=== PATIENT | female | born 1960 | race Hispanic/Latino ===

== ENCOUNTER → 2019-06-22 | Outpatient (CLI) | payer MEDICARE, OTHER ==
[~2019-06-22] MED LIST: IOPAMIDOL 370 MG/ML 200 ML INFUS..BTL INJ ONE; SODIUM CHLORIDE 0.9% 50ML 50 ML ONE
[2019-06-22 12:08] LABS: BLOOD UREA NITROGEN 12 mg/dL (7-26); BUN/CREATININE RATIO 14 (6-25); CREATININE, SERUM 0.85 mg/dL (0.57-1.11); EST GLOMERULAR FILTRATION RATE > 60 ML/MIN (60-)
--- NOTE | 2019-06-22 13:37 | Diagnostic Imaging Report ---
INDICATION: Right upper quadrant abdominal pain. COMPARISON: None. TECHNIQUE: CT of the Abdomen and Pelvis WITH intravenous contrast. Enteric contrast was not used. The exam was performed according to our department dose-optimization protocol, which includes automated exposure control, adjustments of mA and kV according to patient size. Iterative reconstructions are also sometimes employed. FINDINGS: There is suggestion of a few small stones in the gallbladder. The gallbladder is not distended and there is no inflammatory change around the gallbladder. No biliary ductal dilation. Diffuse fatty infiltration of the pancreas is noted without peripancreatic stranding or ductal dilation. Liver and spleen are unremarkable. There is nonnodular thickening of the adrenal glands. No renal mass or hydronephrosis is demonstrated. In the uterus there is a 8 mm enhancing area, probably a small polyp or submucosal fibroid. No adnexal mass is demonstrated. No bowel obstruction or infection is demonstrated. No peritoneal free fluid or free air. Lower thorax is unremarkable. There is multilevel thoracolumbar vertebral degenerative change. No suspicious osseous lesion or compression fracture is demonstrated. IMPRESSION: Suggestion of gallbladder stones. Right upper quadrant ultrasound exam is recommended. No CT evidence of cholecystitis. Small enhancing area in the uterus, suspect small polyp or submucosal fibroid. Pelvic ultrasound exam is recommended. This would best be performed on a routine outpatient basis. Signed by: Chaka Mcdowell MD on 06/22/2019 1:35 PM
== END ==
LOC: CT 10:54
PROVIDERS: ATTEND Internal Medicine Gastroenterology
DX: R10.11 Right upper quadrant pain (principal)
CPT/HCPCS: 36415; 74177; 82565; 84520; Q9967

== ENCOUNTER → 2019-11-09 | Day surgery (SDC) | payer OTHER ==
[2019-11-04 11:47] LABS: BASOPHILS % 0.4 % (0.0-1.0); EOSINOPHILS # (AUTO) 0.2 (0.0-0.4); EOSINOPHILS % 2.1 % (0.0-6.0); HEMATOCRIT 32.9 % (34.2-44.1); LYMPHOCYTES # (AUTO) 1.6 (1.0-3.2); LYMPHOCYTES % 17.6 % (18.0-39.1); MEAN CORPUSCULAR HEMOGLOBIN 27.9 pg (28-32); MEAN CORPUSCULAR HGB CONC 30.4 g/dL (31-35); MEAN CORPUSCULAR VOLUME 91.6 fL (81-99); MONOCYTES # (AUTO) 0.6 (0.2-0.8); MONOCYTES % 6.9 % (4.4-11.3); NEUTROPHILS # (AUTO) 6.6 (2.1-6.9); NEUTROPHILS % 72.7 % (38.7-80.0); PLATELET COUNT 222 x10e3/uL (140-360); RED BLOOD COUNT 3.59 x10e6/uL (3.6-5.1); RED CELL DISTRIBUTION WIDTH 14.2 % (11.7-14.4)
[~2019-11-09] MED LIST changes: +AMLODIPINE BESY10 MG PO; +ATORVASTATIN CA40 MG PO; +GABAPENTIN400 MG PO; +HYDRALAZINE HCL25 MG PO; +HYOSCYAMINE 0.125 MG TAB ONE; -IOPAMIDOL 370 MG/ML 200 ML INFUS..BTL INJ ONE; +LOSARTAN POTAS100 MG PO; +NOVOLIN N100 UNIT/1 SC; -SODIUM CHLORIDE 0.9% 50ML 50 ML ONE
[2019-11-09 14:00] VITALS: BP 130/80
--- NOTE | 2019-11-09 14:21 | Operative Report ---
DATE OF PROCEDURE: 11/09/2019 SURGEON: Vasyl Zamora MD PROCEDURES: EGD with biopsies and colonoscopy with polypectomy. INDICATION FOR EGD: Dyspepsia. INDICATIONS FOR COLONOSCOPY: Colorectal cancer screening. MEDICATIONS: The patient was done under MAC, please see anesthesiologist's note. PROCEDURE IN DETAIL: With the patient in left lateral decubitus position, a flexible fiberoptic Olympus gastroscope was introduced into the esophagus under direct visualization without any difficulty. There was some patchy erythema noted in distal esophagus. The scope was then advanced with ease into the stomach. Mucosa overlying the antrum and the body revealed some patchy erythema and [id number] edema, and biopsies were obtained, sent to stain for H. pylori. Pylorus was of normal contour and shape, it was intubated with ease and the scope was advanced all the way to the second portion of the duodenum. Biopsies were obtained from the proximal second portion and duodenal bulb to rule out sprue. The scope was then withdrawn back into the stomach and retroflexed, mucosa overlying the fundus and cardia appeared to be within normal limits. The scope was then straightened out, it was subsequently withdrawn. The patient tolerated the procedure well. IMPRESSION: 1. Distal esophagitis, mild. 2. Gastritis, biopsied, biopsies sent to stain for H. pylori. 3. Rule out sprue. PLAN: 1. Follow up histology. 2. Initiate Protonix 40 mg one p.o. q.a.m. a.c. DESCRIPTION OF PROCEDURE: The patient was then turned around after adequate lubrication of the anal canal, a flexible fiberoptic Olympus colonoscope was inserted into the rectum with ease and advanced all the way to the proximal ascending colon. The cecum was full of retained stool and could not be examined. The scope was then withdrawn slowly. A single diverticulum was noted in the proximal ascending colon. Whatever was visualized, the rest of the ascending colon grossly appeared to be within normal limits. One polyp was cold biopsied. One polyp was hot snared from the transverse colon. Two polyps were hot snared from the descending colon. The sigmoid and the rectum grossly appeared to be within normal limits. The scope was then retroflexed into the distal rectum. Small internal hemorrhoids were noted, none of which was actively bleeding. The scope was then straightened out, it was subsequently withdrawn. The patient tolerated the procedure well. IMPRESSION: 1. Suboptimal prep, cecum not examined due to large amount of retained fecal material. 2. Diverticulosis in the proximal ascending colon. 3. Transverse colon polyps x2; one hot snared, one cold biopsied. 4. Descending colon polyps x2, hot snared. 5. Internal hemorrhoids, none actively bleeding. PLAN: 1. Follow up histology. 2. Initiate high-fiber, low-fat diet. 3. Initiate high-fiber supplement. 4. The patient will need a repeat colonoscopy later this year after a better prep. Vasyl Zamora MD [facility] [place]/[facility] /[id number] cc: Abe Muhammad MD
== END | disposition home or self-care (01) ==
LOC: OR 10:54
PROVIDERS: ATTEND Internal Medicine Gastroenterology
DX: K29.70 Gastritis, unspecified, without bleeding (principal); D12.3 Benign neoplasm of transverse colon; D12.4 Benign neoplasm of descending colon; K20.9 Esophagitis, unspecified; K59.00 Constipation, unspecified; K57.30 Diverticulosis of large intestine without perforation or abscess without bleeding; K64.8 Other hemorrhoids; B96.81 Helicobacter pylori [H. pylori] as the cause of diseases classified elsewhere; E11.9 Type 2 diabetes mellitus without complications; I11.0 Hypertensive heart disease with heart failure; I50.9 Heart failure, unspecified; I69.351 Hemiplegia and hemiparesis following cerebral infarction affecting right dominant side; F32.9 Major depressive disorder, single episode, unspecified; Z01.810 Encounter for preprocedural cardiovascular examination; Z01.812 Encounter for preprocedural laboratory examination; Z11.59 Encounter for screening for other viral diseases
CPT/HCPCS: 36415; 43239; 45378; 45384; 45385; 82948; 85025; 87635; 93005